=== PATIENT | female | born 1980 | race Caucasian/White ===

== ENCOUNTER 2021-02-03 10:18 | Inpatient (IN) | payer OTHER ==
[~2021-02-03] VITALS: Ht 162.6 cm; Wt 106.5 kg
[2021-02-17] VITALS (10 sets, daily range): BP systolic 128–138; BP diastolic 80–95; PULSE 80–105; TEMP 97.9–98.3
--- NOTE | 2021-02-17 07:30 | NUR ---
40 y/o female ambulated to bay 1 independently with steady gait. Alert and oriented. Confirmed procedure and consent signed. Vitals obtained. 20G IV started in right hand, infusing without complications. Lungs CTA. Heart tones regular. Bowel sounds hypoactive. Non slip socks on, bedrails up x2, call light in reach. Instructed to use call light before getting out of bed. Home meds given to pharmacy.
[2021-02-17] MEDS ORDERED: NEURONTIN300 MG/CAP PO (08:02)
[2021-02-17] MEDS ORDERED: PRILOSEC 20MG20 MG PO (08:03)
[2021-02-17] MEDS ORDERED: SYNTHROID 0.0.025 MG PO (08:04)
[2021-02-17] MEDS ORDERED: ATARAX 25MG25 MG/TAB PO (08:05)
[2021-02-17] MEDS ORDERED: CLARITIN 1010 MG/TAB PO (08:06)
[2021-02-17] MEDS ORDERED: TYLENOL SINUS1 EACH PO (08:07)
--- NOTE | 2021-02-17 13:45 | NUR ---
Pt arrived on unit from PACU via bed. Report received from KIM Leon. Oriented pt to room, bed and call light within reach.
--- NOTE | 2021-02-17 14:45 | NUR ---
PER PACU NURSE, PT IS TO REMAIN STRICT NPO PER RADIOLOGY UNTIL FOLLOWING SWALLOW STUDY TODAY AROUND [phone].
--- NOTE | 2021-02-17 14:48 | NUR ---
PT REQUESTING TO AMBULATE TO RESTROOM. PT APPEARS DROWSY AND SPEECH IS SLURRED. VITAL SIGNS STABLE. PT EDUCATED ON SAFETY PRECAUTIONS. DEMANDING TO AMBULATE AT THIS TIME AND REFUSING BEDSIDE COMMODE OR BED LIN. PT HAS SLOW STEADY GAIT TO TOILET. VOIDS 325CC OF BRAYDEN URINE. C/O GAS PAIN AND SEVERE PAIN "ALL OVER." PT IRRITABLE AND REQUESTING STAFF TO LEAVE HER UNATTENDED IN RESTROOM FOR PRIVACY MEASURES. THIS NURSE REMAINS OUTSIDE RESTROOM DOOR. PT AGREEABLE TO HELP WITH AMBULATION BACK TO BED. REMAINS NPO AT THIS TIME PENDING SWALLOW STUDY LATER THIS AFTERNOON.
--- NOTE | 2021-02-17 16:16 | NUR ---
PT TO RADIOLOGY VIA WHEELCHAIR FOR SWALLOW STUDY, STABLE CONDITION UPON LEAVING UNIT.
--- NOTE | 2021-02-17 16:31 | NUR ---
PT RETURNS IN STABLE CONDITION FROM SWALLOW STUDY. PENDING RADIOLOGY REPORT.
--- NOTE | 2021-02-17 16:38 | NUR ---
ZARA,GRITTING MACHINE OPERATOR BY TO SEE PT. PT REQUESTING TO NOT BE BOTHERED AND FOR GRITTING MACHINE OPERATOR TO LEAVE AND "COME BACK AT ANOTHER TIME." ZARA STATES SHE WILL REATTEMPT IN THE MORNING PRIOR TO GOING TO HER CLINIC HOURS. PT REMAINS IN BED WITH CALL LIGHT WITHIN REACH.
--- NOTE | 2021-02-17 17:34 | NUR ---
CALL TO AT THIS TIME TO VERIFY ORDERS. POST SWALLOW STUDY PT CAN NOW HAVE A FULL LIQUID DIET TOLERATED. PT MAY TAKE PO MEDS. FOR PAIN CONTROL CONTINUE TYLENOL 1000MG Q6H, OXY FOR BREAKTHROUGH PAIN, AND MAY HAVE 0.25MG DILAUDID PRN IV FOR UNRELIEVED PAIN WITH PO MEDS.
--- NOTE | 2021-02-17 21:30 | NUR ---
2130 PT CALLS OUT. IS HAVING PAIN, BUT IS USE TO PAIN. STATES IS INDIFFERENT TO HER BUT SHE HAS TO STAY WITH HIM FOR INSURANCE REASONS. 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
--- NOTE | 2021-02-18 00:35 | NUR ---
0035 PT UPSET AND AGITATED THAT SHE IS UNABLE TO DRINK WATER AT HER NORMAL AMOUNT BECAUSE IT HURTS HER STOMACH. SARAI OUT AND ROCKS IN BED EVERYTIME SHE TRIES TO DRINK. STATES PO PAIN MED NOT WORKING. 0036 DILAUDID 0.25 IV GIVEN WITH GOOD RESULTS. WATER TAKEN AFTER PAIN MED AND STATES DOES NOT HURT MUCH NOW. GOING TO SLEEP.
[2021-02-18 01:00] VITALS: BP 137/88; PULSE 83; TEMP 97.8
[2021-02-18 05:00] VITALS: BP 139/85; PULSE 85; TEMP 98.1
--- NOTE | 2021-02-18 05:00 | NUR ---
0500 OXYCODONE 5MG PO GIVEN FOR SURGICAL SITE PAIN. SM SIPS OF WATER TAKEN AND STATES STILL HURTS BUT NOT MUCH.
--- NOTE | 2021-02-18 08:45 | NUR ---
This RN at bedside and patient states "I do not feel okay or right, I have never had these thoughts before and I just dont feel like waking up, everyone keeps saying that I will feel better each time I wake up but that is not happening, I dont want to live like this". This RN trying to comfort patient at this time. Patient nauseated and having pain. volunteer services coordinator consulted at this time. 914: Dr. Odell updated on patient and orders for Psychiatric consult. 919: Medication Coordinator consult done- Ezequiel at nurses station and states she will be back to speak with patient again but to hold on the Psychiatric consult.
--- NOTE | 2021-02-18 09:25 | NUR ---
Initial visit attempt; Patient sleeping, Cmm Inspector left card stating God's blessings and information regarding the availability of Spiritual Care at our hospital.
--- NOTE | 2021-02-18 09:31 | NUR ---
Graduate Student met with this patient at bedside, after being notified that patient made a statement that she just wanted to sleep and not wake up. Patient appeared agitated and repeatedly stated that she was in a lot of pain, stating she has a high pain tolerance but this "was a stupid decision" and is sorry she had the surgery. Patient told this worker that she has been living in [place] since 2019, was in [place] prior, she is but he's not home and said that its not a marriage. She reportedly has 3 children, 2 are in [place], 1 (a 14 y.o. girl) is at home in [place]. When this worker asked if she had an emergency contacts there while patient is hospitalized, she stated that her dtr's child care lead teacher can easily be reached in an emergency. She reports no family in the area or in [place], no friends. Patient denies thoughts of self-harm, depression, but does describe anxiety symptoms to this worker. SW relayed to her RN and SW plans to return to speak with her about mental health resources. *D/C Plan: home pending medical clearance
--- NOTE | 2021-02-18 10:00 | NUR ---
Rests in bed, alert. States still hurting. Encouraged to take her tylenol. States unable to. Its hard to swallow. Face timing with someone. States having allergies. Says what else can go wrong. Warm blanket given to patient.
--- NOTE | 2021-02-18 11:30 | NUR ---
Dr. Odell here, visits with patient. Emerson drain tube taken out by Dr. Odell. Dr. Odell instructed patient on discharge planning today. Also let her know that what diet she will be doing for the next month. Patient agrees.
[2021-02-18] MEDS ORDERED: ROXICODONE 55 MG/TAB PO (11:59)
[2021-02-18] MEDS ORDERED: PROMETHAZINE12.5 M5 PO (11:59)
[2021-02-18 12:00] VITALS: BP 144/84; PULSE 79; TEMP 97.8
--- NOTE | 2021-02-18 12:08 | NUR ---
Emt B returned to patient's room to follow up on mental health resources but before this worker said anything, patient had her on speaker phone, stating "can you believe they think I want to HURT myself", going on to say "I'm the most stubborn person you will ever meet", continuing to make fun of staff that she would consider self-harm. said very little while patient was talking. This worker asked if patient wanted to speak with her privately and she said no, following with questioning patient if she would like some resources and she responded "I have a very good therapist...thank you very much". *D/C Plan: discharge home with no needs
--- NOTE | 2021-02-18 16:30 | NUR ---
Ambulates to the bathroom. Spits up in container. Small amount of mucous noted. Back to bed. Discharge instructions given, verbalizes understanding. States ride will be here shortly.
--- NOTE | 2021-02-18 17:00 | NUR ---
Roxicodone 5 mg given per request and as ordered. States unable to take the neurotin. Patient states pharmacy closed at [facility] [place] in [place]. Offered to call doctor and have prescription called to pharmacy here in town. States will they have it ready when I get there. Let patient know that Im not sure, but I can call them. States just forget it. 1714 Dismissed to home with instructions via wheel chair. Friend was notified of pharmacy not open. Let her know that maybe she could sisal picker medication in the morning. She states yes we can.
== END 2021-02-18 17:15 | disposition home or self-care (01) | DRG 621 ==
LOC: OB 02-17 06:55 → INPTSU 02-17 06:55 → EDSTATUS 02-17 09:30 → SDCO 02-17 09:30 → SURG 02-17 09:30 → OB 02-17 13:56
PROVIDERS: ADMIT Surgery
PROC: 0DB64Z3 Excision of Stomach, Percutaneous Endoscopic Approach, Vertical (ICD-10-PCS; principal; 2021-02-17 09:30)
DX: E66.01 Morbid (severe) obesity due to excess calories (principal); J30.2 Other seasonal allergic rhinitis; Z68.41 Body mass index [BMI] 40.0-44.9, adult; K21.9 Gastro-esophageal reflux disease without esophagitis; E03.9 Hypothyroidism, unspecified; M17.0 Bilateral primary osteoarthritis of knee; F43.10 Post-traumatic stress disorder, unspecified; D64.9 Anemia, unspecified; Z20.822 Contact with and (suspected) exposure to COVID-19; F41.9 Anxiety disorder, unspecified; G43.909 Migraine, unspecified, not intractable, without status migrainosus; E55.9 Vitamin D deficiency, unspecified; R11.0 Nausea; Z87.891 Personal history of nicotine dependence
CPT/HCPCS: J0690; J1100; J1170; J1885; J2405; J2550; J2704; J3010; J7120

== ENCOUNTER → 2024-03-01 | Outpatient (CLI) | payer OTHER ==
[~2024-03-01] MED LIST: ATARAX 25MG25 MG/TAB PO; CEFTIN500 MG PO; CLARITIN 1010 MG/TAB PO; NEURONTIN300 MG/CAP PO; PRILOSEC 20MG20 MG PO; PROMETHAZINE12.5 M5 PO; ROXICODONE 55 MG/TAB PO; SYNTHROID 0.0.025 MG PO; TYLENOL SINUS1 EACH PO
== END ==
LOC: COL.RAD 14:29
DX: N96 Recurrent pregnancy loss (principal)